=== PATIENT | male | born 1950 | race Hispanic/Latino ===

== ENCOUNTER → 2025-03-18 | Outpatient (CLI) | payer BC ==
[~2025-03-18] MED LIST: IOHEXOL-350 75 ML VIAL IV ONE
--- NOTE | 2025-03-18 17:02 | HMCIMG ---
EXAM: COMPUTED TOMOGRAPHY OF THE ABDOMEN AND PELVIS WITHOUT AND WITH INTRAVENOUS CONTRAST (ORAL CONTRAST ADMINISTERED) Technique: Helical computed tomography of the abdomen and pelvis without and with intravenous contrast with axial acquisition and multiplanar reformations when available. CTDIvol: 33.70 mGy; DLP: 1812.00 mGy???cm. Contrast: Standard dose of intravenous contrast administered. Positive oral contrast administered. Clinical Information: Gross hematuria. Findings: Lung bases: No pleural effusion, collapse, or consolidation within the visualized lung bases. Liver: Normal size, morphology, and attenuation with smooth margins; no focal hepatic lesion or calcification; no intrahepatic or extrahepatic biliary ductal dilatation; zully hepatis unremarkable. Portal and hepatic veins; inferior vena cava: Normal diameters with expected contrast opacification. Gallbladder and biliary tree: Normal wall thickness with smooth contour; uniform intraluminal fluid density; no calcified gallstones; cystic duct region unremarkable; no pericholecystic inflammatory change. Pancreas: Normal size, morphology, and attenuation; pancreatic duct not dilated; no peripancreatic fluid or fat stranding. Spleen: Normal size, morphology, and attenuation; no focal lesion. Adrenal glands: Normal morphology and attenuation bilaterally. Kidneys and ureters: Kidneys normal in size, shape, and enhancement without nephrolithiasis, hydronephrosis, or enhancing renal mass; collecting systems and ureters show prompt excretion of contrast without filling defect identified. Stomach and duodenum: Stomach distended and unremarkable; gastroesophageal junction and pylorus normal. Small bowel: Jejunal and ileal loops normal in caliber and wall thickness; no obstruction. Colon and appendix: Rectum and colon are fecal filled without abnormal mural thickening; sigmoid colon diverticulosis without diverticulitis; no computed tomography evidence of acute appendicitis. Peritoneum and mesentery: No free fluid or free intraperitoneal air; mesenteric fat and omentum unremarkable. Lymph nodes: No pathologic abdominal or pelvic lymphadenopathy. Retroperitoneum and vasculature: Aorta and inferior vena cava in normal position and caliber. Pelvic organs: Urinary bladder demonstrates normal wall thickness and contour and is filled with contrast; prostate appears normal. Abdominal wall and paraspinal soft tissues: Unremarkable. Osseous structures: Degenerative changes of the thoracolumbar spine and bilateral hip joints; orthopedic implant present in the neck of the left femur. IMPRESSION: 1. No urinary tract calculus, hydronephrosis, enhancing renal mass, or urothelial filling defect identified to explain gross hematuria. Recommend urologic evaluation per hematuria guidelines, including urinalysis and cystoscopy, with urine cytology as clinically indicated. 2. Sigmoid diverticulosis without acute diverticulitis. 3. 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 4. Otherwise unremarkable contrast-enhanced computed tomography of the abdomen and pelvis. /[place]
== END | disposition home or self-care (01) ==
LOC: RAH 08:37
PROVIDERS: ATTEND Urology
DX: K57.30 Diverticulosis of large intestine without perforation or abscess without bleeding (principal); M16.0 Bilateral primary osteoarthritis of hip; M47.815 Spondylosis without myelopathy or radiculopathy, thoracolumbar region; R31.0 Gross hematuria; Z96.652 Presence of left artificial knee joint
CPT/HCPCS: 74178; Q9967